=== PATIENT | female | born 1980 | race Caucasian/White ===

== ENCOUNTER 2017-02-20 22:28 | Emergency (ER) | payer OTHER ==
[~2017-02-20] VITALS: Ht 160 cm; Wt 64.0 kg
[2017-02-20 22:44] VITALS: BP 123/84
== END 2017-02-21 02:00 | disposition left against medical advice (07) ==
LOC: ER 22:28
DX: H92.02 Otalgia, left ear (principal); Z53.21 Procedure and treatment not carried out due to patient leaving prior to being seen by health care provider

== ENCOUNTER 2021-09-01 02:50 | Emergency (ER) | payer MEDICAID, OTHER ==
[~2021-09-01] VITALS: Ht 160 cm; Wt 71.0 kg
[2021-09-01] MEDS ORDERED: IBUPROFEN 600MG TABLET PO STA (03:55)
[2021-09-01 05:08] LABS: EOSINOPHILS % 0.6 % (0.0-5.0); HEMATOCRIT. 40.4 % (36.0-48.0); HEMOGLOBIN. 13.2 g/dL (12.0-16.0); LYMPHOCYTES % 40.6 % (20.0-50.0); MEAN CORPUSCULAR HEMOGLOBIN 27.8 pg (28.0-32.0); MEAN CORPUSCULAR VOLUME 85.4 fL (81.0-99.0); MEAN PLATELET VOLUME 7.8 fl (7.4-10.4); MONOCYTES % 7.3 % (2.0-8.0); NEUTROPHILS % 50.5 % (40.0-76.0); PLATELET 368 x1000/uL (130-400); RED BLOOD CELL COUNT 4.74 mill/uL (4.2-5.4); RED CELL DISTRIBUTION WIDTH 15.4 % (11.6-14.6)
[2021-09-01 05:16] LABS: CHLORIDE 108 mEq/L (98-107)
[2021-09-01 05:37] LABS: ETHANOL BLOOD 328 mg/dL
[2021-09-01 05:47] LABS: HCG SCREEN NEGATIVE
[2021-09-01] MEDS ORDERED: IBUP-2028 MT (05:51)
[2021-09-01 06:06] VITALS: BP 116/80
== END 2021-09-01 06:09 | disposition home or self-care (01) ==
LOC: ER 03:13
DX: S09.8XXA Other specified injuries of head, initial encounter (principal); V49.49XA Driver injured in collision with other motor vehicles in traffic accident, initial encounter; Y93.89 Activity, other specified; Y92.89 Other specified places as the place of occurrence of the external cause; Y99.8 Other external cause status; D64.9 Anemia, unspecified; Z90.49 Acquired absence of other specified parts of digestive tract; Z98.890 Other specified postprocedural states; M79.642 Pain in left hand; M25.571 Pain in right ankle and joints of right foot
CPT/HCPCS: 36415; 73130; 73610; 80053; 80320; 84703; 85025; 99285; L0172; G0480